=== PATIENT | female | born 2000 | race Caucasian/White ===

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

== ENCOUNTER 2024-01-13 12:17 | Emergency (ER) | payer OTHER ==
[2024-01-13 12:27] VITALS: RESP 18; BMI 17.4
[2024-01-13] MEDS ORDERED: ONDANSETRON 4 MG/2 ML VIAL ONE (12:44)
[2024-01-13] MEDS ORDERED: ACETAMINOPHEN INJECTION 100 ML IVPB ONE (12:44)
[2024-01-13] MEDS: ACETAMINOPHEN 1000 MG/100 ML BAG IVPB ONE (13:01)
[2024-01-13] MEDS: SODIUM CHLORIDE 0.9% 500 ML INFUS.BAG IV ONE (13:01)
[2024-01-13] MEDS: ONDANSETRON 4 MG/2 ML VIAL IVPUSH ONE (13:02)
[2024-01-13] MEDS: ACETAMINOPHEN 500 MG TABLET (FP) PO ONE (13:08)
[2024-01-13 13:11] LABS: BASO % 0.1 % (0-2.0); HEMOGLOBIN 13.5 GM/dL (10.7-15.3); LYMPH % 4.9 % (8-40); MCH 31.2 pg (25.7-33.7); MCHC 34.5 g/dl (32.0-36.0); MEAN CELL VOLUME 90.3 fl (80-96); MEAN PLT VOLUME 8.5 fl (7.5-11.1); MONO % 10.6 % (3.8-10.2); NEUT % 84.4 % (42.8-82.8); PLATELET COUNT 193 10^3/uL (134-434); RBC 4.32 M/mm3 (3.60-5.2); RDW 14.4 % (11.6-15.6); WHITE BLOOD COUNT 7.1 K/mm3 (4.0-10.0)
[2024-01-13 13:35] LABS: POTASSIUM 3.8 mmol/L (3.5-5.1)
[2024-01-13 13:37] LABS: BLOOD UREA NITROGEN 10.5 mg/dL (7-18); CALCIUM 9.1 mg/dL (8.5-10.1)
[2024-01-13 13:40] LABS: CREATININE 0.7 mg/dL (0.55-1.3)
[2024-01-13 13:42] LABS: BILIRUBIN,TOTAL 0.3 mg/dL (0.2-1); TOT PROT 7.7 g/dl (6.4-8.2)
[2024-01-13 14:54] VITALS: BP 95/59; PULSE 95; TEMP 98.6
== END 2024-01-13 15:16 | disposition home or self-care (01) ==
LOC: JER 12:17
PROC: 3E033NZ Introduction of Analgesics, Hypnotics, Sedatives into Peripheral Vein, Percutaneous Approach (ICD-10-PCS; principal; 2024-01-13)
PROC: 3E033GC Introduction of Other Therapeutic Substance into Peripheral Vein, Percutaneous Approach (ICD-10-PCS; 2024-01-13)
DX: R50.9 Fever, unspecified (principal); R05.9 Cough, unspecified; R09.81 Nasal congestion; J10.1 Influenza due to other identified influenza virus with other respiratory manifestations; Z20.822 Contact with and (suspected) exposure to COVID-19
CPT/HCPCS: 0241U-QW; 36415; 80053; 84484; 84703; 85025; 99284-25; J0131